=== PATIENT | male | born 1990 | race African-American/Black ===

== ENCOUNTER 2018-05-04 12:51 | Emergency (ER) | payer SELFPAY ==
[~2018-05-04] VITALS: Ht 180.3 cm; Wt 89.0 kg
[2018-05-04] MEDS ORDERED: TORADOL PO (14:27)
[2018-05-04] MEDS ORDERED: MEDDOSEPAK PO (14:27)
[2018-05-04 14:30] VITALS: BP 129/74
== END 2018-05-04 14:30 | disposition home or self-care (01) | DRG 563 ==
LOC: ED 12:51
DX: S46.912A Strain of unspecified muscle, fascia and tendon at shoulder and upper arm level, left arm, initial encounter (principal); M25.512 Pain in left shoulder; G89.29 Other chronic pain; F17.210 Nicotine dependence, cigarettes, uncomplicated; X58.XXXA Exposure to other specified factors, initial encounter